=== PATIENT | male | born 1995 | race Caucasian/White ===

== ENCOUNTER 2017-08-27 23:43 | Emergency (ER) | payer BC ==
[~2017-08-27] VITALS: Ht 180.3 cm; Wt 117.9 kg
--- NOTE | 2017-08-27 23:52 | Emergency Room Report ---
History of Present Illness Time Seen by [id number] Presenting Problem in Triage Pt arrived:Walked Presenting Problem:C/O MID CHEST PAIN SINCE LAST PM CONSISTENTLY. NOTHING MAKES IT WORSE OR BETTER. SOME OCCASIONAL SOB. DENIES DIAPHORESIS OR N/V. Onset of symptoms date/time:08/26/17 or onset unknown for:MEDICAL HX UNKNOWN Treatment Prior to Arrival: N/A QUALITY CONSULTANT Provided by: Sepsis Risk Assessment: Temp: 98.1 B/P: 177/100 MAP: 125 Pulse: 98 Resp: 20 Recent fever? N Clinical Suspician of Infection? N Mental Status: 1 - Regular (Normal Baseline) Sepsis Risk:Possible Sepsis Risk Have you (or family members/close friends) recently traveled outside the [place]? N If Yes, where/when: Have you had exposure to infectious disease within the past month? N TB? Other? Specify: Comment The patient is brought in by father. Patient states that last night while watching TV his heart rate suddenly "skyrocketed" to 130. His heart rate then came back down but he started having some chest pain, a dull ache in the center of his chest that has persisted. It is not made worse by anything. He has some intermittent shortness of breath. Heart rate has been running in the 90s to low 100s. He has had a very minimal cough. No fever. No leg pain or swelling. No recent travel, surgeries, or hospitalization. No history of heart or lung problems. Family history positive for ventricular tachycardia and his mother, atrial fibrillation and his father, and heart problems in his grandparents. Nonsmoker. He is on no medications. ALLERGIES Coded Allergies: No Known Allergies (08/27/17) History Medical History General CAD? No Angina: No MS: No Hypertension? No Hyperlipidemia? No CHF? No DVT? No PE? No COPD? No Asthma? No Anemia? No GERD? No Gastric ulcers? No GI Bleed? No Hernia? No Thyroid Problems? No Hypothyroidism? No CVA? No Seizures? No Diabetes? No Renal Insuffiency? No End Stage Renal Disease? No UTI? No Stones? No BPH? No GB Disease: No Nephritic Syndrome? No Asplenia? No Hepatitis? No Sickle Cell Disease? No Arthritis? No Migraines? No Cataracts? No Glaucoma? No MRSA? No HIV? No TB? No Anxiety? No Depression? No Cancer? No Immunization Hx DT/Tetanus Unknown Surgical Hx Previous Surgery?Y TONSILECTOMY Social History Smoking Hx Smoker: Never Smoker Tobacco: No Alcohol Alcohol: No Review of Systems All Other Systems Reviewed and Negative Constitutional denies diaphoresis, denies fever Respiratory cough, shortness of breath Cardiovascular chest pain, denies edema, palpitations Gastrointestinal denies nausea, denies vomiting Physical Exam Vital Signs Vital Signs Date Time Temp Pulse Resp B/P Pulse O2 O2 Flow FiO2 Ox Delivery Rate 08/28 0106 98.1 61 20 148/80 97 08/28 0105 98.1 61 20 148/80 97 08/28 0020 84 20 168/90 99 08/27 2344 98.1 98 20 177/100 99 General Appearance no apparent distress Eye Exam - bilateral eye normal exam, bilateral eye PERRL, bilateral eye EOMI Ear, Nose, Throat hearing grossly normal, normal ENT inspection Neck normal inspection, non-tender, supple, full range of motion Respiratory Status Yes: trachea midline, chest symmetrical. No: respiratory distress. Lung Sounds bilateral: normal breath sounds, lungs clear. Cardiovascular normal exam, regular rate/rhythm, no peripheral edema, no gallop, no JVD, no murmur, no rub, normal peripheral pulses Peripheral Pulses Pulses normal Yes Gastrointestinal normal bowel sounds, normal exam, non tender, soft, no organomegaly Extremities no calf tenderness, no pedal edema Neurologic alert, normal exam, oriented x 3 Mental status normal mood/affect Skin intact, normal color, warm/dry Medical Decision Making LABS/Meds/Orders Pt receiving controlled substance in ED? No Results/Orders Laboratory Tests 08/27/17 2350: Sodium 140, Potassium 3.7, Chloride 103, Carbon Dioxide 30, BUN 11, Creatinine 0.9, Estimated Creat Clear 218 H, Estimated GFR (MDRD) 108, Glucose 107 H, Calcium 9.0, Total Bilirubin 0.4, AST 25, ALT 62, Alkaline Phosphatase 106, Creatine Kinase 129, CK-MB (CK-2) Rel Index 0.4, CK and CKMB Interp < 0.5, Troponin I < 0.02, Total Protein 8.6 H, Albumin 4.3, Globulin 4.3 H, Albumin/ Globulin Ratio 1.0 L, D-Dimer 140, WBC 8.3, RBC 5.47, Hgb 15.8, Hct 46.2, MCV 84.5, RDW 12.9, Plt Count 334, MPV 7.2 L, Gran % 61.6, Gran # 5.1, Lymphocytes % 27.4, Monocytes % 7.5, Eosinophils % 2.7, Basophils % 0.8, Lymphocytes # 2.3, Monocytes # 0.6, Eosinophils # 0.2, Basophils # 0.1, PUBS MCHC 34.1, MCH 28.8 Current Medication Orders Sig/Tom Start time Last Medication Dose Route Stop Time Status Admin Aspirin 0 .STK-MED ONE 08/27 2353 DC .ROUTE Aspirin 324 MG ONCE ONE 08/27 2345 DC 08/27 PO 08/27 Orders Procedure Date/time Status CHEST(2 VIEWS-NOT PORTABLE) 08/28 2347 Active D-DIMER 08/28 0004 Complete ELECTROCARDIOGRAM REQUEST 08/27 2347 Active IV SALINE LOCK 08/27 2347 Active COMPUTER VIDEO GAME DESIGNER 08/27 2347 Active CBC WITH AUTO DIFF 08/27 2347 Complete CARDIAC ENZYMES 08/27 2347 Complete CHEM 12 PROFILE 08/27 2347 Complete CM/EKG CM/EKG Comments EKG interpreted by Yaya Mckinney MD: Rhythm: sinus Rate: 86 [place]: normal Ectopy: none Conduction: normal ST Segment Changes: none T Wave Changes: none Q Waves: none No evidence of acute ischemia or injury XRAY/CT/US XRAY/CT/US XRAY chest Comment Chest x-ray interpreted by Yaya Mckinney M.D. No infiltrate, pneumothorax, pleural effusion, or wide mediastinum. Departure Departure Disposition DC Home or Self Care(routine) Clinical Impression Primary Impression: Chest pain, atypical Secondary Impressions: Tachycardia Condition STABLE Referrals Perlita Bowman MD (Family) Patient Instructions DI for Atypical Chest Pain, DI for Tachycardia Additional Instructions Additional instructions for CHEST PAIN: See your physician as soon as possible for further evaluation. Return immediately if worsening chest pain, vomiting, shortness of breath, fever, coughing of blood. ED Critical Care Critical Care No at 0135
[2017-08-28 00:14] LABS: HEMOGLOBIN 15.8 g/dL (14.1-18.0); LYMPH # 2.3 K/mm3 (0.7-4.5); LYMPH % 27.4 % (10-50)
--- OUTSIDE RECORDS SUMMARY | 2017-08-28 00:20 | External Medical Summary Rpt | CCD ---
Author Author , JASON Organization JASON Address Unknown Phone [email or web address] Purpose Continuity of Care Document - 08-27-2017 through 2016 Results Labs Lab Lab Date Result Refere Interp Status Commen Order Detail nces retati t Range on CBC w auto diff (08-27-2017 23:50) Automat = 0.1 0-0.2 complet ed 017 K/MM3 ed blood 23:50 basophi l count (count/ vo Baso % = 0.8 % 0.1-2.0 complet 017 ed 23:50 Automat = 0.2 0.0-0.4 complet ed 017 K/mm3 ed blood 23:50 eosinop hil count Automat = 2.7 % 0.1-12. complet ed 017 0 ed blood 23:50 eosinop hils/10 0 leukocy t Blood = 5.1 1.3-8.0 complet granulo 017 K/mm3 ed cytes 23:50 automat ed count (numb Granulo = 61.6 37.0-80 complet cyte 017 % .0 ed percent 23:50 age Blood = 46.2 42.0-52 complet hematoc 017 % .0 ed rit 23:50 (volume fractio n) Blood = 15.8 14.1-18 complet hemoglo 017 g/dL .0 ed bin 23:50 measure ment (mass/v olum Absolut = 2.3 0.7-4.5 complet e 017 K/mm3 ed lymphoc 23:50 yte count Lymphoc = 27.4 10-50 complet yte 017 % ed count, 23:50 blood, automat ed Mean = 28.8 27-31.2 complet corpusc 017 pg ed ular 23:50 hemoglo bin (MCH) determ Automat = 34.1 31.8-35 complet ed 017 g/dl .4 ed erythro 23:50 cyte mean corpusc ular h Automat = 84.5 82.2-97 complet ed 017 fl .8 ed erythro 23:50 cyte mean corpusc ular v Absolut = 0.6 0.1-1.0 complet e 017 K/mm3 ed monocyt 23:50 e count Pender % = 7.5 % 1.7-9.3 complet 017 ed 23:50 Automat = 7.2 7.4-10. complet ed 017 fl 4 ed blood 23:50 platele t mean volume sohan Blood = 334 142-424 complet platele 017 K/mm3 ed t count 23:50 Red = 5.47 4.6-6.2 complet blood 017 M/mm3 ed cell 23:50 count Automat = 12.9 11.5-17 complet ed 017 % .5 ed erythro 23:50 cyte distrib ution width Blood = 8.3 4.5-13. complet leukocy 017 K/MM3 0 ed josemanuel 23:50 count (number /volume )
--- OUTSIDE RECORDS SUMMARY | 2017-08-28 00:20 | External Medical Summary Rpt | CCD ---
Author Author [employer] Organization [employer] Address Unknown Phone Unavailable Purpose Continuity of Care Document - through 2016
--- OUTSIDE RECORDS SUMMARY | 2017-08-28 00:20 | External Medical Summary Rpt | CCD ---
Author Author , JASON Organization JASON Address Unknown Phone [email or web address] Purpose Continuity of Care Document - 08-27-2017 [...] 017 K/mm3 ed monocyt 23:50 e count [place] % = 7.5 % 1.7-9.3 complet 017 [...]
--- OUTSIDE RECORDS SUMMARY | 2017-08-28 00:20 | External Medical Summary Rpt | CCD ---
Demographics Preferred Language Ghanaian Marital Status Unknown Mandaen Affiliation Unknown Race Unknown Ethnic Group Unknown Author Author , JASON GOMEZ Address Unknown Phone Immunization No patient found.
--- OUTSIDE RECORDS SUMMARY | 2017-08-28 00:20 | External Medical Summary Rpt | CCD ---
Demographics Preferred Language Egyptian Marital Status Unknown Jehovah'S Witness Affiliation Unknown Race Unknown Ethnic Group Unknown Author Author , JASON GOMEZ Address Unknown Phone Immunization No patient found.
--- OUTSIDE RECORDS SUMMARY | 2017-08-28 00:21 | External Medical Summary Rpt ---
Author Author [employer], [employer] Organization [employer] Address Unknown Phone Unavailable Results CBC W Auto Differential panel in Blood Observa Value Referen Units Interpr Notes Date tion ce etation Range Basophils 0 - 0.2 K/MM3 Normal No Aug 27 inform2016 [#/volume on in 11:50 PM ] in source Blood by data Automated count Basophils 0.1 - 2.0 % Normal No Aug 27 / inform2016 leukocyte on in 11:50 PM s in source Blood by data Automated count Eosinophi 0.0 - 0.4 K/mm3 Normal No Aug 27 ls 2016 [#/volume on in 11:50 PM ] in source Blood by data Automated count Eosinophi 0.1 - % Normal No Aug 27 ls/100 12.0 inform2016 leukocyte on in 11:50 PM s in source Blood by data Automated count Granulocy 1.3 - 8.0 K/mm3 Normal No Aug 27 josemanuel 2016 [#/volume on in 11:50 PM ] in source Blood by data Automated count Granulocy 37.0 - % Normal No Aug 27 josemanuel/100 80.0 2016 leukocyte on in 11:50 PM s in source Blood by data Automated count Hematocri 42.0 - % Normal No Aug 27 t [Volume 52.0 2016 on in 11:50 PM Fraction] source of Blood data Hemoglobi 14.1 - g/dL Normal No Aug 27 n 18.0 2016 [Mass/vol on in 11:50 PM ume] in source Blood data Lymphocyt 0.7 - 4.5 K/mm3 Normal No Aug 27 es inform2016 [#/volume on in 11:50 PM ] in source Unspecifi data ed specimen by Automated count Lymphocyt 10 - 50 % Normal No Aug 27 es inform2016 [#/volume on in 11:50 PM ] in source Unspecifi data ed specimen by Automated count Erythrocy 27 - 31.2 pg Normal No Aug 27 te mean 2016 corpuscul on in 11:50 PM ar source hemoglobi data n [Entitic mass] Erythrocy 31.8 - g/dl Normal No Aug 27 te mean 35.4 2016 corpuscul on in 11:50 PM ar source hemoglobi data n concentra tion [Mass/vol ume] by Automated count Erythrocy 82.2 - fl Normal No Aug 27 te mean 97.8 2016 corpuscul on in 11:50 PM ar volume source [Entitic data volume] by Automated count Monocytes 0.1 - 1.0 K/mm3 Normal No Aug 27 informati 2016 [#/volume on in 11:50 PM ] in source Blood by data Automated count Monocytes 1.7 - 9.3 % Normal No Aug 27 /100 inform2016 leukocyte on in 11:50 PM s in source Blood by data Automated count Platelet 7.4 - fl Low No Aug 27 mean 10.4 2016 volume on in 11:50 PM [Entitic source volume] data in Blood by Automated count Platelets 142 - 424 K/mm3 Normal No Aug 27 inform2016 [#/volume on in 11:50 PM ] in source Blood data Erythrocy 4.6 - 6.2 M/mm3 Normal No Aug 27 josemanuel informati 2016 [#/volume on in 11:50 PM ] in source Amniotic data fluid Erythrocy 11.5 - % Normal No Aug 27 te 17.5 inform2016 distribut on in 11:50 PM ion width source [Entitic data volume] by Automated count Leukocyte 4.5 - K/MM3 Normal No Aug 27 s 13.0 informati 2016 [#/volume on in 11:50 PM ] in source Blood data
[2017-08-28 00:39] LABS: BUN 11 mg/dL (7-18); GFR (ESTIMATED) 108 ML/MIN (>60)
[2017-08-28 01:06] VITALS: BP 148/80
--- NOTE | 2017-08-28 12:24 | RADIOLOGY REPORT PS360 ---
CHEST(2 VIEWS-NOT PORTABLE) Ordering physician: Yaya Mckinney MD Age: 22 years Male INDICATION: chest symptomsCP chest pain nonsmoker PROCEDURE: CHEST(2 VIEWS-NOT PORTABLE) FINDINGS: No previous studies for comparison Lungs well expanded and clear with nothing definitely acute. Only question some minor pleural thickening along the lateral aspect left CP angle just beneath the rib on left. Doubt this is of significance. If there should be any persistent chest pain or symptoms follow-up rib series suggested. No pneumothorax. No pleural effusion. Heart normal size. Normal pulmonary vascularity. Hilar and mediastinal structures appear satisfactory. Chest wall unremarkable.. IMPRESSION ----- Nothing definitely acute . Lungs clear. Note minor comments in text
== END 2017-08-28 01:06 | disposition home or self-care (01) ==
LOC: ER 23:43
PROVIDERS: Emergency Medicine
DX: R07.89 Other chest pain (principal)